=== PATIENT | male | born 1990 | race Caucasian/White ===

== ENCOUNTER 2017-08-19 16:19 | Emergency (ER) | payer SELFPAY ==
[2017-08-19] MEDS ORDERED: PEPCID IV ONE (23:50)
[2017-08-19] MEDS ORDERED: NORCO 7.5/325 PO ONE (23:50)
[2017-08-19] MEDS ORDERED: BENADRYL IV ONE (23:50)
[2017-08-19] MEDS ORDERED: TORADOL IV ONE (23:50)
--- NOTE | 2017-08-20 00:06 | Emergency Department Report ---
Chief Complaint: Skin/Abscess/Foreign Body Stated Complaint: INSECT BITE, SWOLLEN TESTICLES, FEVER, LEFT FOOT S - HPI History of Present Illness: 26 year old male presents to ED with insect bites to right testicle and left foot. patient does not speak estonian but has sonar technician/family member in room. patient's family member states patient had fever of 102 last night relieved with tylenol. patient is currently afebrile. patient has small abscess to right testicle and moderate swelling to entire left foot x4 days. patient is stable, neurologically intact and in no acute distress. - ROS Review of Systems: Genitourinary: +abscess Muscoloskeletal: +swelling to left foot - Exam Vital Signs: Vital Signs 08/19/17 18:53 Temperature 99 F Pulse Rate 87 Respiratory 18 Rate Blood Pressure 120/69 O2 Sat by Pulse 100 Oximetry Physical Exam: Right testicular tenderness to site of abscess Left foot tenderness MSE screening note: Focused history and physical exam performed. Due to findings the following was ordered: Labs CT w/contrast of left foot ED Disposition for MSE Condition: Stable Referrals: PRIMARY CARE, [Primary Care Provider] - 3-5 Days
[2017-08-20 00:14] LABS: Hematocrit 41.8 % (35.5-45.6); Hemoglobin 14.1 gm/dl (11.8-15.2); Mean Corpuscular HGB Conc 34 % (32-34); Mean Corpuscular Hemoglobin 31 pg (28-32); Mean Corpuscular Volume 92 fl (84-94); Platelet Count 226 K/mm3 (140-440); Red Blood Count 4.56 M/mm3 (3.65-5.03); Red Cell Distribution Width 12.8 % (13.2-15.2); White Blood Count 13.4 K/mm3 (4.5-11.0)
[2017-08-20 00:27] LABS: Anion Gap 17 mmol/L; BUN/Creatinine Ratio 16.66; Blood Urea Nitrogen 10 mg/dL (9-20); Calcium 8.8 mg/dL (8.4-10.2); Carbon Dioxide 23 mmol/L (22-30); Chloride 98.4 mmol/L (98-107); Glucose 93 mg/dL (75-100); Potassium 3.2 mmol/L (3.6-5.0); Sodium 135 mmol/L (137-145)
[2017-08-20] MEDS ORDERED: NACL ONE (00:58)
[2017-08-20] MEDS ORDERED: MORPHINE IV ONE (02:24)
[2017-08-20] MEDS ORDERED: NACL 0.9% 1000 ML 1,000 ML IV ONE ×2 (02:24→05:50)
--- NOTE | 2017-08-20 02:54 | Emergency Department Report ---
ED General Adult HPI - General Chief complaint: Skin/Abscess/Foreign Body Stated complaint: INSECT BITE, SWOLLEN TESTICLES, FEVER, LEFT FOOT S Time Seen by Provider: 08/20/17 01:25 Source: patient Mode of arrival: Ambulatory Limitations: No Limitations - History of Present Illness Initial comments: 26-year-old male presents with complaint of 3-5 days of worsening pain near his left ankle as well as small amount of swelling underneath his right testicle. Patient also complaining of some intermittent fevers and chills. Patient is awake alert and oriented 3 nontoxic-appearing accompanied by girlfriend. Patient speaks Burmese which I speak fluently. States that his left foot has become slightly red and swollen. Denies headache dizziness chest pain palpitations nausea or vomiting. Denies abdominal pain. Urinating and defecating normally. Denies dysuria. Denies any significant testicular swelling states that swelling is near his inguinal crease adjacent to his testicle. Onset/Timin -: days(s) Location: abdomen, left (left foot) Severity scale (0 -10): 4 Quality: aching Consistency: constant Treatments Prior to Arrival: none - Related Data Previous Rx's Medication Instructions Recorded Last Taken Type Clindamycin [Clindamycin CAP] 300 mg PO Q6H #28 capsule 08/20/17 Unknown Rx HYDROcodone/APAP 5-325 [[place] 1 each PO Q6HR PRN #12 tablet 08/20/17 Unknown Rx 5/325] Ibuprofen [Motrin] 600 mg PO Q8H PRN #30 tablet 08/20/17 Unknown Rx Sulfamethoxazole/Trimethoprim 1 each PO BID #14 tablet 08/20/17 Unknown Rx [Bactrim DS TAB] Allergies Allergy/AdvReac Type Severity Reaction Status Date / Time No Known Allergies Allergy Unverified 08/19/17 18:53 ED Review of Systems ROS: Stated complaint: INSECT BITE, SWOLLEN TESTICLES, FEVER, LEFT FOOT S Other details as noted in HPI Constitutional: denies: chills, fever Eyes: denies: eye pain, eye discharge, vision change ENT: denies: ear pain, throat pain Respiratory: denies: cough, shortness of breath, wheezing Cardiovascular: denies: chest pain, palpitations Endocrine: no symptoms reported Gastrointestinal: denies: abdominal pain, nausea, diarrhea Genitourinary: as per HPI, testicular pain. denies: urgency, dysuria Musculoskeletal: as per HPI, other (pain and swelling near his left foot and left ankle). denies: back pain, joint swelling, arthralgia Skin: denies: rash, lesions Neurological: denies: headache, weakness, paresthesias Psychiatric: denies: anxiety, depression Hematological/Lymphatic: denies: easy bleeding, easy bruising ED Past Medical Hx - Past Medical History Previous Medical History?: No - Surgical History Past Surgical History?: No - Social History Smoking Status: Never Smoker Substance Use Type: Alcohol, Non Opiate Pain, Other - Medications Home Medications: Home Medications Medication Instructions Recorded Confirmed Last Taken Type Clindamycin [Clindamycin CAP] 300 mg PO Q6H #28 capsule 08/20/17 Unknown Rx HYDROcodone/APAP 5-325 [[place] 1 each PO Q6HR PRN #12 tablet 08/20/17 Unknown Rx 5/325] Ibuprofen [Motrin] 600 mg PO Q8H PRN #30 tablet 08/20/17 Unknown Rx Sulfamethoxazole/Trimethoprim 1 each PO BID #14 tablet 08/20/17 Unknown Rx [Bactrim DS TAB] ED Physical Exam - General Limitations: No Limitations General appearance: alert, in no apparent distress - Head Head exam: Present: atraumatic, normocephalic - Eye Eye exam: Present: normal appearance, PERRL, EOMI - ENT ENT exam: Present: mucous membranes moist - Neck Neck exam: Present: normal inspection - Respiratory Respiratory exam: Present: normal lung sounds bilaterally. Absent: respiratory distress - Cardiovascular Cardiovascular Exam: Present: regular rate, normal rhythm. Absent: systolic murmur, diastolic murmur, rubs, gallop - GI/Abdominal GI/Abdominal exam: Present: soft, normal bowel sounds - Rectal Rectal exam: Present: deferred - External exam: Present: swelling (small 2-3 cm abscess underlying the right scrotal region) - Expanded Exam Expanded exam: Testicular Tenderness: Right, Testicular Swelling: Right, Cremasteric Reflex Present: Left, Right image: 1 - Small abscess here, no crepitus no signs of Jose Alfredo's gangrene on clinical exam - Extremities Exam Extremities exam: Present: normal inspection - Expanded Lower Extremity Exam Left Lower Leg exam: Present: tenderness (tenderness above left ankle region, visible erythema and area) Ankle exam: Present: tenderness (tenderness above left ankle visible erythema) Foot/Toe exam: Present: normal inspection, full ROM, tenderness (and is left lateral malleolus region, range of motion intact right ankle to flexion and extension) Neuro vascular tendon exam: Present: no vascular compromise (distal dorsalis pedis and posterior tibial pulses intact) Gait: Positive: antalgic 1 - Erythema and swelling this region here - Back Exam Back exam: Present: normal inspection - Neurological Exam Neurological exam: Present: alert, oriented X3, CN II-XII intact, abnormal gait (tells her gait secondary to pain) - Psychiatric Psychiatric exam: Present: normal affect, normal mood - Skin Skin exam: Present: warm, dry, intact, normal color. Absent: rash ED Course Vital Signs 08/19/17 08/20/17 18:53 05:51 Temperature 99 F 98.1 F Pulse Rate 87 65 Respiratory 18 16 Rate Blood Pressure 120/69 Blood Pressure 89/54 [Right] O2 Sat by Pulse 100 99 Oximetry - I & D Scrotum Type of Procedure: Simple Site: posterior scrotal region Blade Size: 11 I & D Procedure: betadine prep, sterile drapes applied, sterile dressing applied , gauze wick placed (1/4 inch iodoform gauze ~ 2 inches long) Progress: Area infiltrated with lidocaine 2%, small stab incision made minor amount of purulent drainage, wound culture sent, small amount of iodoform packing placed, covered with gauze after Left Lower Lateral Distal Ankle Type of Procedure: Simple Site: left lower extremity abscess Blade Size: 11 I & D Procedure: betadine prep, sterile drapes applied, sterile dressing applied , gauze wick placed (2 inches) Progress: small abscess small abscess incised and drained the left lateral ankle region. Tiny amount of purulent drainage, small amount of quarter-inch Xeroform packing placed and wound. ED Medical Decision Making - Lab Data Result diagrams: 08/19/17 23:54 08/19/17 23:54 - Medical Decision Making A/P: Small scrotal abscess, left lower extremity cellulitis 1-both abscesses incised and drained , wound culture sent from small scrotal abscess 2-CT abdomen and pelvis shows no gas no significant abscess 3-patient given clindamycin will place patient on course of 7 days of clindamycin and Bactrim 4- short course nor ago when necessary for pain Critical care attestation.: If time is entered above; I have spent that time in minutes in the direct care of this critically ill patient, excluding procedure time. ED Disposition Clinical Impression: Scrotal abscess, Left leg cellulitis Disposition: TO HOME OR SELFCARE Is pt being admited?: No Does the pt Need Aspirin: No Condition: Stable Instructions: Cellulitis (ED), Abscess Incision and Drainage (ED), Abscess (ED) Additional Instructions: Patient advised to return to ED in 24-48 hours for wound check Prescriptions: Clindamycin [Clindamycin CAP] 300 mg PO Q6H #28 capsule HYDROcodone/APAP 5-325 [[place] 5/325] 1 each PO Q6HR PRN #12 tablet PRN Reason: Pain Ibuprofen [Motrin] 600 mg PO Q8H PRN #30 tablet PRN Reason: Pain Sulfamethoxazole/Trimethoprim [Bactrim DS TAB] 1 each PO BID #14 tablet Referrals: [facility] [Outside] - 3-5 Days [facility] [Outside] - 3-5 Days Forms: Accompanied Note, Work/School Release Form(ED) Time of Disposition: 05:46
--- NOTE | 2017-08-20 03:09 | Cat Scan Report ---
FINAL REPORT PROCEDURE: CT ABDOMEN PELVIS W CON TECHNIQUE: Computerized axial tomography of the abdomen and pelvis was performed after the IV injection of iodinated nonionic contrast. HISTORY: groin abscess COMPARISON: No prior studies are available for comparison. FINDINGS: Visualized lower thorax: No significant abnormality. Liver: Normal size and attenuation. Spleen: Normal size and attenuation. Gallbladder and biliary system: Normal. Pancreas: Normal. Adrenals: Normal. Kidneys: Normal. GI tract: Normal. Lymph nodes and mesentery: Normal. Vasculature: Normal. Bladder: Normal. Reproductive organs: Normal. Peritoneum: No free fluid. Musculoskeletal structures: No significant abnormality. Other: None. IMPRESSION: There is no evidence of intestinal or urinary tract obstruction. No ileus or enteritis.
--- NOTE | 2017-08-20 03:41 | Cat Scan Report ---
FINAL REPORT PROCEDURE: CT LOWER EXTREMITY LT WO CON TECHNIQUE: Computerized axial tomography of the LEFT ankle was performed without contrast. HISTORY: LE swelling swollen lt ankle from possible bug bite COMPARISON: No prior studies are available for comparison. FINDINGS: Bony structures including marrow spaces: Normal. Neurovascular structures: Normal. Soft tissues: Mild diffuse soft tissue swelling. Joint space: Normal. IMPRESSION: There is mild diffuse soft tissue swelling. The osseous structures are intact without fracture or dislocation. No localized or generalized osteopenia.
[2017-08-20] MEDS ORDERED: CLEOCIN 600 MG/50 mL 600 MG/50 ML BAG IV ONE (03:43)
[2017-08-20 04:24] LABS: Bilirubin,Urine NEG (Negative); Blood,Urine SM (Negative); Ketones,Urine NEG (Negative); Leukocyte Esterase,Urine NEG (Negative); Nitrite,Urine NEG (Negative); Protein,Urine <15 mg/dL mg/dL (Negative); Urobilinogen,Urine < 2.0 mg/dL (<2.0); WBC,Urine < 1.0 /HPF (0.0-6.0)
[2017-08-20 07:16] VITALS: BP 108/66
== END 2017-08-20 07:10 | disposition home or self-care (01) ==
LOC: ED 16:19
DX: N49.2 Inflammatory disorders of scrotum (principal); L03.116 Cellulitis of left lower limb
CPT/HCPCS: 10060; 36415; 55100; 73700; 74177; 80048; 81001; 82140; 82550; 85027; 85652; 86140; 87040; 87076; 87116; 87186; 96361; 96365; 96375; 99285; J1200; J1885; J2270; J7030; Q9967

== ENCOUNTER 2018-04-09 12:50 | Emergency (ER) | payer SELFPAY ==
[2018-04-09 13:11] VITALS: BP 143/73
--- NOTE | 2018-04-09 15:30 | Emergency Department Report ---
ED Male HPI - General Chief complaint: Urogenital-Male Stated complaint: KNOT IN PRIVATE AREA Time Seen by Provider: 04/09/18 15:21 Source: patient Mode of arrival: Ambulatory Limitations: No Limitations - History of Present Illness Initial comments: Patient is a patient is a 27-year-old male who is a family member here translating who is presenting with left inguinal pain. Patient states a small knot there is been present for several days. Patient states pain is 6 out of 10 in severity. Patient denies any penile discharge but does have some mild dysuria. Patient denies any abdominal pain fevers nausea vomiting diarrhea. Dissection active with one partner. - Related Data Previous Rx's Medication Instructions Recorded Last Taken Type Clindamycin [Clindamycin CAP] 300 mg PO Q6H #28 capsule 08/20/17 Unknown Rx HYDROcodone/APAP 5-325 [[place] 1 each PO Q6HR PRN #12 tablet 08/20/17 Unknown Rx 5/325] Ibuprofen [Motrin] 600 mg PO Q8H PRN #30 tablet 08/20/17 Unknown Rx Sulfamethoxazole/Trimethoprim 1 each PO BID #14 tablet 08/20/17 Unknown Rx [Bactrim DS TAB] Ciprofloxacin HCl [Cipro] 500 mg PO BID #14 tablet 04/09/18 Unknown Rx Doxycycline [Vibramycin CAP] 100 mg PO Q12HR #14 capsule 04/09/18 Unknown Rx Ibuprofen [Motrin] 800 mg PO Q8HR #15 tablet 04/09/18 Unknown Rx Allergies Allergy/AdvReac Type Severity Reaction Status Date / Time No Known Allergies Allergy Unverified 08/19/17 18:53 ED Review of Systems ROS: Stated complaint: KNOT IN PRIVATE AREA Other details as noted in HPI Comment: All other systems reviewed and negative ED Past Medical Hx - Past Medical History Previous Medical History?: No - Surgical History Past Surgical History?: No - Social History Smoking Status: Never Smoker Substance Use Type: None - Medications Home Medications: Home Medications Medication Instructions Recorded Confirmed Last Taken Type Clindamycin [Clindamycin CAP] 300 mg PO Q6H #28 capsule 08/20/17 Unknown Rx HYDROcodone/APAP 5-325 [[place] 1 each PO Q6HR PRN #12 tablet 08/20/17 Unknown Rx 5/325] Ibuprofen [Motrin] 600 mg PO Q8H PRN #30 tablet 08/20/17 Unknown Rx Sulfamethoxazole/Trimethoprim 1 each PO BID #14 tablet 08/20/17 Unknown Rx [Bactrim DS TAB] Ciprofloxacin HCl [Cipro] 500 mg PO BID #14 tablet 04/09/18 Unknown Rx Doxycycline [Vibramycin CAP] 100 mg PO Q12HR #14 capsule 04/09/18 Unknown Rx Ibuprofen [Motrin] 800 mg PO Q8HR #15 tablet 04/09/18 Unknown Rx ED Physical Exam - General Limitations: No Limitations General appearance: alert, in no apparent distress - Head Head exam: Present: atraumatic, normocephalic - Eye Eye exam: Present: normal appearance - ENT ENT exam: Present: mucous membranes moist - Neck Neck exam: Present: normal inspection - Respiratory Respiratory exam: Present: normal lung sounds bilaterally. Absent: respiratory distress - Cardiovascular Cardiovascular Exam: Present: regular rate, normal rhythm. Absent: systolic murmur, diastolic murmur, rubs, gallop - GI/Abdominal GI/Abdominal exam: Present: soft, normal bowel sounds. Absent: distended, tenderness, guarding, rebound - Rectal Rectal exam: Present: deferred - exam: Present: normal inspection External exam: Present: other (patient has a small mobile tender lymph nodes in the left inguinal chain.) - Extremities Exam Extremities exam: Present: normal inspection - Back Exam Back exam: Present: normal inspection - Neurological Exam Neurological exam: Present: alert, oriented X3 - Psychiatric Psychiatric exam: Present: normal affect, normal mood - Skin Skin exam: Present: warm, dry, intact, normal color. Absent: rash ED Course Vital Signs 04/09/18 13:08 Temperature 97.7 F Pulse Rate 69 Blood Pressure 143/73 O2 Sat by Pulse 99 Oximetry Critical care attestation.: If time is entered above; I have spent that time in minutes in the direct care of this critically ill patient, excluding procedure time. ED Disposition Clinical Impression: Inguinal lymphadenitis, Urethritis Disposition: DC-01 TO HOME OR SELFCARE Is pt being admited?: No Does the pt Need Aspirin: No Condition: Stable Instructions: Nonspecific Urethritis in Men (ED), Lymphadenopathy (ED) Prescriptions: Ciprofloxacin HCl [Cipro] 500 mg PO BID #14 tablet Doxycycline [Vibramycin CAP] 100 mg PO Q12HR #14 capsule Ibuprofen [Motrin] 800 mg PO Q8HR #15 tablet Referrals: CHITO NIEVES MD [Staff Physician] - 3-5 Days Forms: STI Treatment and Prevention
== END 2018-04-09 17:08 | disposition home or self-care (01) ==
LOC: ED 12:50
DX: I88.9 Nonspecific lymphadenitis, unspecified (principal); N34.2 Other urethritis
CPT/HCPCS: 99281